=== PATIENT | male | born 1940 | race Caucasian/White ===

== ENCOUNTER 2016-07-02 09:39 | Outpatient (CLI) | payer MEDICARE, OTHER | END 2016-07-02 09:40 | disposition home or self-care (01) | DX: E78.5 Hyperlipidemia, unspecified (principal); R35.1 Nocturia; C61 Malignant neoplasm of prostate ==

== ENCOUNTER 2016-07-02 12:27 | Outpatient (CLI) | payer MEDICARE, OTHER | END 2016-07-02 12:28 | disposition home or self-care (01) | DX: R35.1 Nocturia (principal); C61 Malignant neoplasm of prostate ==

== ENCOUNTER 2016-11-26 18:07 | Emergency (ER) | payer MEDICARE, OTHER ==
[2016-11-26 18:48] LABS: BILIRUBIN,URINE NEGATIVE (NEGATIVE)
[2016-11-26 18:49] LABS: UA w/ MICROSCOPIC CHARGE YES
[2016-11-26 18:51] LABS: UR CULTURE IF IND NOT INDICATED; WBC,URINE 0-3 /HPF (0-3)
--- NOTE | 2016-11-26 19:27 | ED Physician Documentation ---
PD HPI MALE - Stated complaint Stated Complaint: MALE - Chief complaint Chief Complaint: General - History obtained from History obtained from: Patient - History of Present Illness Timing - onset: Today Timing - duration: Hours Timing - details: Abrupt onset, Still present (improving to just faint redness of urine now.) Associated symptoms: Hematuria (noted marked blood in urine today, without clots. It is tapering now.). No: Unable to urinate, Genital sore / lesion Similar symptoms before: Diagnosis (some blood in urine with bladder cancer and surgery in the past.) Recently seen: Not recently seen Review of Systems Constitutional: denies: Fever, Chills GI: denies: Abdominal Pain, Nausea, Vomiting : reports: Hesitancy, Hematuria (just today). denies: Dysuria, Frequency Skin: denies: Rash, Lesions PD PAST MEDICAL HISTORY - Past Medical History Cardiovascular: Hypertension, High cholesterol : Retention, Other - Past Surgical History Past Surgical History: Yes General: Other Cardiovascular: Pacemaker - Present Medications Home Medications: Ambulatory Orders Medication Instructions Recorded Confirmed Aspirin 81 mg PO DAILY 11/26/16 11/26/16 Atorvastatin [Lipitor] 20 mg PO DAILY 11/26/16 11/26/16 Carvedilol 12.5 mg PO DAILY 11/26/16 11/26/16 Losartan [Cozaar] 25 mg PO DAILY 11/26/16 11/26/16 Sulfamethox/Trimeth 800/160 1 each PO BID #10 tablet 11/26/16 [Bactrim Ds 800/160] Tamsulosin HCl [Flomax] 0.4 mg PO BID 11/26/16 11/26/16 Tolterodine Tartrate [Detrol] 2 mg PO DAILY 11/26/16 11/26/16 - Allergies Allergies/Adverse Reactions: Allergies Allergy/AdvReac Type Severity Reaction Status Date / Time No Known Drug Allergies Allergy Verified 11/26/16 18:56 - Social History Does the pt smoke?: No Smoking Status: Never smoker Does the pt drink ETOH?: Yes Does the pt have substance abuse?: No - POLST Patient has POLST: No PD ED PE NORMAL - Vitals Vital signs reviewed: Yes - General General: Alert and oriented X 3, No acute distress, Well developed/nourished - Abdomen Abdomen: Normal bowel sounds, Soft, Non tender - Male Male : Deferred - Rectal Rectal: Deferred - Back Back: No CVA TTP - Derm Derm: Normal color, Warm and dry Results - Vitals Vitals: Oxygen O2 Source Room air - Labs Labs: Laboratory Tests 11/26/16 18:41 Urine Color RED/BLOODY Urine Clarity BLOODY Urine pH 7.0 Ur Specific [place] 1.015 Urine Protein 30 H Urine Glucose (UA) NEGATIVE Urine Ketones NEGATIVE Urine Occult Blood LARGE H Urine Nitrite NEGATIVE Urine Bilirubin NEGATIVE Urine Urobilinogen 0.2 (NORMAL) Ur Leukocyte Esterase NEGATIVE Urine RBC TNTC H Urine WBC 0-3 Ur Squamous Epith Cells NONE SEEN Urine Bacteria Rare Ur Microscopic Review INDICATED Urine Culture Comments NOT INDICATED PD MEDICAL DECISION MAKING - ED course Complexity details: reviewed results, considered differential (only rare bacteria on UA with low WBC, but still infection will be common cause of hematuria. Will treat it that way. Has lessened hematuria now and no clots, so will see if improves, and have him follow up with his urologist. ), d/w patient Departure - Departure Disposition: Home, Self Care Clinical Impression: Hematuria Qualifiers: Hematuria type: gross Qualified Code(s): R31.0 - Gross hematuria Condition: Stable Record reviewed to determine appropriate education?: Yes Instructions: ED Hematuria Follow-Up: Wayne Verma MD [Primary Care Provider] - Indira Meade MD [Physician No Access] - Prescriptions: Sulfamethox/Trimeth 800/160 [Bactrim Ds 800/160] 1 each PO BID #10 tablet Comments: Your urine test does not show an obvious infection but that would be a very common cause of blood in the urine. We are treated with an antibiotic for the next 5 days. See how your urine does over the next day or 2 if the bleeding stops. If it does not stop bleeding, follow-up with your urologist on Tuesday. If it picks up the degree of bleeding significantly, then return to the ER. Discharge Date/Time: 11/26/16 19:54
[2016-11-26] MEDS ORDERED: SULFAMETH/TRIMETH DS 800/160 MG TABLET PO STA (19:42)
[2016-11-26] MEDS ORDERED: SULFAMETH/TRIMETH DS 800/160 MG TABLET PO ONE (19:50)
[2016-11-26 19:56] VITALS: BP 121/77
== END 2016-11-26 19:54 | disposition home or self-care (01) ==
LOC: ED 18:07
DX: R31.0 Gross hematuria (principal); I10 Essential (primary) hypertension; E78.00 Pure hypercholesterolemia, unspecified; Z95.0 Presence of cardiac pacemaker; Z79.82 Long term (current) use of aspirin
CPT/HCPCS: 81001; 99282; 99283; A9270; 81003; 87086

== ENCOUNTER 2017-10-06 19:59 | Emergency (ER) | payer MEDICARE, OTHER ==
[2017-10-06] MEDS ORDERED: ONDANSETRON 4 MG/2 ML VIAL IVP STA (20:29)
[2017-10-06] MEDS ORDERED: MORPHINE 10 MG/ML VIAL IVP STA (20:29)
[2017-10-06 20:30] LABS: BASOPHILS # (AUTO) 0.1 10^3/uL (0.0-0.1); BASOPHILS % (AUTO) 0.5 %; EOSINOPHILS # (AUTO) 0.1 10^3/uL (0.0-0.7); HGB - HEMOGLOBIN 16.9 g/dL (14.0-18.0); LYMPHOCYTES # (AUTO) 1.1 10^3/uL (1.5-3.5); LYMPHOCYTES % (AUTO) 9.3 %; MEAN CORPUSCULAR HEMOGLOBIN 31.4 pg (27.0-31.0); MEAN CORPUSCULAR HGB CONC 33.9 g/dL (32.0-36.0); MEAN CORPUSCULAR VOLUME 92.7 fL (80.0-94.0); MEAN PLATELET VOLUME 8.6 fL (7.4-11.4); MONOCYTES # (AUTO) 0.7 10^3/uL (0.0-1.0); MONOCYTES % (AUTO) 5.5 %; NEUTROPHILS # (AUTO) 10.1 10^3/uL (1.5-6.6); NEUTROPHILS % (AUTO) 83.7 %; PLT - PLATELET COUNT 198 10^3/uL (130-450); RED BLOOD COUNT 5.36 10^6/uL (4.70-6.10); RED CELL DISTRIBUTION WIDTH 13.7 % (12.0-15.0)
--- NOTE | 2017-10-06 20:31 | ED Physician Documentation ---
PD HPI ABD PAIN - Stated complaint Stated Complaint: AB PX - Chief complaint Chief Complaint: Abd Pain - History obtained from History obtained from: Patient - History of Present Illness Timing - onset: Today (A relatively sudden onset lower abdominal pain starting mid afternoon today with nausea and vomiting. He had a normal bowel movement prior to that but does not note any flatus since then. 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 denies: Constipation, Diarrhea : denies: Dysuria, Frequency PD PAST MEDICAL HISTORY - Past Medical History Cardiovascular: Hypertension, High cholesterol : Retention, Other - Past Surgical History Past Surgical History: Yes General: Other Cardiovascular: Pacemaker - Present Medications Home Medications: Ambulatory Orders Medication Instructions Recorded Confirmed Aspirin 81 mg PO DAILY 11/26/16 11/26/16 Atorvastatin [Lipitor] 20 mg PO DAILY 11/26/16 11/26/16 Carvedilol 12.5 mg PO DAILY 11/26/16 11/26/16 Losartan [Cozaar] 25 mg PO DAILY 11/26/16 11/26/16 Tamsulosin HCl [Flomax] 0.4 mg PO BID 11/26/16 11/26/16 Tolterodine Tartrate [Detrol] 2 mg PO DAILY 11/26/16 11/26/16 Meloxicam [Mobic] 7.5 mg PO BIDWM PRN #7 tablet 10/06/17 Oxycodone HCl/Acetaminophen 1 - 2 tab PO Q4H PRN #15 tablet 10/06/17 [Percocet 5-325 mg Tablet] - Allergies Allergies/Adverse Reactions: Allergies Allergy/AdvReac Type Severity Reaction Status Date / Time No Known Drug Allergies Allergy Verified 10/06/17 20:27 - Social History Does the pt smoke?: No Smoking Status: Never smoker Does the pt drink ETOH?: Yes Does the pt have substance abuse?: No - POLST Patient has POLST: No PD ED PE NORMAL - Vitals Vital signs reviewed: Yes - General General: Alert and oriented X 3, No acute distress - HEENT HEENT: PERRL, EOMI - Neck Neck: Supple, no meningeal sign, No bony TTP - Cardiac Cardiac: RRR, No murmur - Respiratory Respiratory: No respiratory distress, Clear bilaterally - Abdomen Abdomen: Other (I do not appreciate any bowel tones, he is nontender. No surgical signs.) - Back Back: No CVA TTP, No spinal TTP - Derm Derm: Normal color, Warm and dry - Extremities Extremities: No edema, No calf tenderness / cord - Neuro Neuro: Alert and oriented X 3, Normal speech - Psych Psych: Normal mood, Normal affect Results - Vitals Vitals: Vital Signs - 24 hr 10/06/17 10/06/17 10/06/17 20:00 20:45 20:55 Temperature 36.3 C L Heart Rate 57 L 57 L 56 L Respiratory 24 17 14 Rate Blood Pressure 144/80 H 143/84 H 143/84 H O2 Saturation 99 97 97 10/06/17 10/06/17 10/06/17 21:05 21:06 21:44 Temperature Heart Rate 74 Respiratory 74 H 98 H 18 Rate Blood Pressure 139/95 H O2 Saturation 100 10/06/17 22:35 Temperature 36.8 C Heart Rate 63 Respiratory 16 Rate Blood Pressure 114/78 O2 Saturation 96 Oxygen O2 Source Room air - Labs Labs: Laboratory Tests 10/06/17 10/06/17 10/06/17 20:17 20:19 20:19 WBC 12.0 H RBC 5.36 Hgb 16.9 Hct 49.7 MCV 92.7 MCH 31.4 H MCHC 33.9 RDW 13.7 Plt Count 198 MPV 8.6 Neut # (Auto) 10.1 H Lymph # (Auto) 1.1 L [place] # (Auto) 0.7 Eos # (Auto) 0.1 Baso # (Auto) 0.1 Absolute Nucleated RBC 0.01 Nucleated RBC % 0.1 Sodium 141 Potassium 4.2 Chloride 104 Carbon Dioxide 24 Anion Gap 13.0 BUN 21 H Creatinine 1.3 H Estimated GFR (MDRD) 53 L Glucose 125 H Lactic Acid Calcium 10.6 H Total Bilirubin 2.6 H AST 30 ALT 26 Alkaline Phosphatase 90 Total Protein 7.2 Albumin 4.4 Globulin 2.8 Albumin/Globulin Ratio 1.6 Lipase 17 L Urine Color YELLOW Urine Clarity CLOUDY Urine pH 7.0 Ur Specific [place] 1.015 Urine Protein NEGATIVE Urine Glucose (UA) NEGATIVE Urine Ketones 15 H Urine Occult Blood MODERATE H Urine Nitrite NEGATIVE Urine Bilirubin NEGATIVE Urine Urobilinogen 0.2 (NORMAL) Ur Leukocyte Esterase NEGATIVE Urine RBC 11-25 H Urine WBC 6-10 H Ur Squamous Epith Cells NONE SEEN Amorphous Sediment Moderate Urine Bacteria None Seen Ur Microscopic Review INDICATED Urine Culture Comments INDICATED 10/06/17 22:03 WBC RBC Hgb Hct MCV MCH MCHC RDW Plt Count MPV Neut # (Auto) Lymph # (Auto) Garden # (Auto) Eos # (Auto) Baso # (Auto) Absolute Nucleated RBC Nucleated RBC % Sodium Potassium Chloride Carbon Dioxide Anion Gap BUN Creatinine Estimated GFR (MDRD) Glucose Lactic Acid 1.6 Calcium Total Bilirubin AST ALT Alkaline Phosphatase Total Protein Albumin Globulin Albumin/Globulin Ratio Lipase Urine Color Urine Clarity Urine pH Ur Specific [place] Urine Protein Urine Glucose (UA) Urine Ketones Urine Occult Blood Urine Nitrite Urine Bilirubin Urine Urobilinogen Ur Leukocyte Esterase Urine RBC Urine WBC Ur Squamous Epith Cells Amorphous Sediment Urine Bacteria Ur Microscopic Review Urine Culture Comments - Rads (name of study) cT aBD aNGIO Radiology: EMP read contemporaneously (8 x 3 x 3 mildly obstructing left distal ureteral calculus. There is aortoiliac atherosclerotic calcification and ectasia of the distal infrarenal abdominal aorta and iliacs. Prior CABG. Evidence of decreased cardiac output. Prostatomegaly with seeds in place.) PD MEDICAL DECISION MAKING - ED course ED course: 77-year-old gentleman with acute lower abdominal pain, given his history of vascular issues initial concern was for just that, also decreased bowel tones were concerning for bowel obstruction, as such CT angiography was done but the finding that was relevant was an 8 x 3 x 3 mm distal left ureteral calculus. He was pain-free after medications here and follow up with his urologist was advised. - Sepsis Event Vital Signs: Vital Signs - 24 hr 10/06/17 10/06/17 10/06/17 20:00 20:45 20:55 Temperature 36.3 C L Heart Rate 57 L 57 L 56 L Respiratory 24 17 14 Rate Blood Pressure 144/80 H 143/84 H 143/84 H O2 Saturation 99 97 97 10/06/17 10/06/17 10/06/17 21:05 21:06 21:44 Temperature Heart Rate 74 Respiratory 74 H 98 H 18 Rate Blood Pressure 139/95 H O2 Saturation 100 10/06/17 22:35 Temperature 36.8 C Heart Rate 63 Respiratory 16 Rate Blood Pressure 114/78 O2 Saturation 96 Oxygen O2 Source Room air Departure - Departure Disposition: 01 Home, Self Care Clinical Impression: Abdominal pain, Renal colic Condition: Good Record reviewed to determine appropriate education?: Yes Instructions: ED Stone Renal W Colic Prescriptions: Meloxicam [Mobic] 7.5 mg PO BIDWM PRN #7 tablet PRN Reason: Pain Oxycodone HCl/Acetaminophen [Percocet 5-325 mg Tablet] 1 - 2 tab PO Q4H PRN #15 tablet PRN Reason: Pain Comments: Follow-up with the urologist, call tomorrow for an appointment. When you go to that appointment take the copy of the CAT scan with you. Return if worse or if pain is uncontrolled. Discharge Date/Time: 10/06/17 22:35
[2017-10-06 20:45] LABS: ALBUMIN 4.4 g/dL (3.2-5.5); ALBUMIN/GLOBULIN RATIO 1.6 (1.0-2.2); BILIRUBIN,TOTAL 2.6 mg/dL (0.2-1.0); CALCIUM 10.6 mg/dL (8.5-10.3); CREATININE 1.3 mg/dL (0.6-1.2); TOTAL PROTEIN 7.2 g/dL (6.7-8.2)
[2017-10-06] MEDS ORDERED: ACETAMINOPHEN 1,000 MG/100 ML 100 ML IV STA (21:08)
[2017-10-06] MEDS ORDERED: IOPAMIDOL-300 50 ML VIAL ONE (21:14)
[2017-10-06] MEDS ORDERED: IOPAMIDOL-300 100 ML VIAL ONE (21:15)
[2017-10-06] MEDS ORDERED: IOPAMIDOL-300 100 ML VIAL IVP ONE (21:35)
--- NOTE | 2017-10-06 22:10 | CT Report ---
Procedure Date: 10/06/2017 Accession Number: [id number] / [id number] Procedure: CT - Abdomen/Pelvis Angio CPT Code: FULL RESULT: EXAM: CT ANGIOGRAM ABDOMEN AND PELVIS WITH CONTRAST EXAM DATE: 10/06/2017 09:39 PM. CLINICAL HISTORY: Low abd pain. COMPARISONS: Pelvis radiograph 08/18/2015. TECHNIQUE: Routine helical CT angiogram imaging was performed through the abdomen and pelvis in the arterial phase. IV contrast: ISOVUE 300 100mL. Enteric contrast: No. Reconstructions: Coronal, sagittal, and 3D MIP reconstructions. In accordance with CT protocol optimization, one or more of the following dose reduction techniques were utilized for this exam: automated exposure control, adjustment of mA and/or KV based on patient size, or use of iterative reconstructive technique. FINDINGS: Vasculature: Mild cardiomegaly. Pacemaker and defibrillator electrodes are present. There is three-vessel coronary artery calcification. Prior CABG with SARAVIA. There is mild calcification in the abdominal aorta. There is minimal fusiform ectasia of the distal infrarenal abdominal aorta which measures up to 2.3 cm. There is mild calcification in the bilateral common iliac arteries. There is moderate bilateral iliac artery tortuosity. There is mild left and minimal right common femoral artery calcification. The celiac axis, SMA, MAXINE, and bilateral renal arteries are widely patent. There are 2 left renal arteries. There is mild contrast reflux into the IVC and hepatic veins. There are bilateral pelvic phleboliths. Lung Bases: There is minimal reticular bibasilar atelectasis or scarring. Abdominal Solid Organs: Early arterial phase images of liver, pancreas, spleen, adrenal glands, and right kidney are unremarkable. There is mild left perinephric fat stranding without delayed enhancement. There is mild left hydronephrosis and hydroureter. There is mild periureteral fat stranding. There are no definite intrarenal calculi. There is an 8 x 3 x 3 mm distal left ureteral calculus 1 cm proximal to the ureterovesical junction, visible on the stock handler floorperson. Biliary system: Unremarkable. Peritoneal Cavity: The opacified stomach and small bowel are nondistended. There is a mobile cecum. The appendix is not clearly identified. There is a small amount of formed stool in the colon. There is mild descending and moderate sigmoid colon diverticulosis. There is no pericolonic fat stranding. There is no lymphadenopathy, ascites, or pneumoperitoneum. Pelvic Organs: Moderate prostatomegaly 4 brachial therapy seeds. Seminal vesicles are unremarkable. Bladder normal in size. No bladder calculi. Bones: Partially lumbarized S1. Moderate degenerative disk disease L5-S1. Sternotomy wires are present. Other: Abdominal wall is unremarkable. IMPRESSION: 1. Mildly obstructing 8 x 3 x 3 mm distal left ureteral calculus. 2. Mild aortoiliac atherosclerotic calcification. Minimal 2.3 cm diameter fusiform ectasia of the distal infrarenal abdominal aorta. Moderate bilateral iliac artery tortuosity. 3. Prior CABG. Pacemaker and defibrillator electrodes. Mild cardiomegaly. Mild contrast reflux into the IVC and hepatic veins consistent with decreased cardiac output. 4. Moderate prostatomegaly. 4 brachytherapy seeds are noted. RADIA
[2017-10-06] MEDS ORDERED: oxyCODONE/ACET 5/325 Prepack 4 PO STA (22:21)
[2017-10-06 22:31] LABS: BILIRUBIN,URINE NEGATIVE (NEGATIVE); GLUCOSE, URINE (UA) NEGATIVE (NEGATIVE); KETONES,URINE (UA) 15 mg/dL (NEGATIVE); LEUKOCYTE ESTERASE, URINE NEGATIVE (NEGATIVE); NITRITE,URINE NEGATIVE (NEGATIVE); OCCULT BLOOD,URINE MODERATE (NEGATIVE); PROTEIN,URINE NEGATIVE (NEGATIVE); UROBILINOGEN,URINE 0.2 (NORMAL) E.U./dL (NORMAL)
[2017-10-06 22:33] LABS: CLARITY,URINE CLOUDY (CLEAR)
[2017-10-06 22:37] LABS: AMORPHOUS SEDIMENT,UR Moderate /LPF; BACTERIA,URINE None Seen /HPF (None Seen); SQUAMOUS EPITHELIAL CELL,UR NONE SEEN (<= Few)
[2017-10-06 22:46] VITALS: BP 114/78
== END 2017-10-06 22:35 | disposition home or self-care (01) ==
LOC: ED 19:59
DX: N20.1 Calculus of ureter (principal); R10.30 Lower abdominal pain, unspecified; I10 Essential (primary) hypertension; E78.00 Pure hypercholesterolemia, unspecified; Z95.0 Presence of cardiac pacemaker; I25.10 Atherosclerotic heart disease of native coronary artery without angina pectoris; Z95.1 Presence of aortocoronary bypass graft; Z79.82 Long term (current) use of aspirin
CPT/HCPCS: 36415; 74174; 80053; 81001; 83605; 83690; 85025; 87086; 96365; 96375; 99284; J0131; Q9967; 81003

== ENCOUNTER 2017-10-08 13:23 | Emergency (ER) | payer MEDICARE, OTHER ==
--- NOTE | 2017-10-08 14:16 | ED Physician Documentation ---
History of Present Illness - Stated complaint Stated Complaint: MED REFILL - Chief complaint Chief Complaint: General - History obtained from History obtained from: Patient - History of Present Illness Timing: Other (He was seen by me a few days ago for renal colic with an 8 x 3 x 3 stone on the left distal ureter. He continues to have pain and has an appointment with his urologist in 5 days, but is taking Percocet, 2 every 4 hours generally which controls the pain but he will run out shortly. He also is having some nausea needs something for that.) Review of Systems Constitutional: denies: Fever, Chills Respiratory: denies: Dyspnea GI: reports: Abdominal Pain, Nausea, Vomiting (Once yesterday) : denies: Dysuria PD PAST MEDICAL HISTORY - Past Medical History Past Medical History: Yes Cardiovascular: Hypertension, High cholesterol : Retention, Other Other Past Medical History: Kidney stones - Past Surgical History Past Surgical History: Yes General: Other Cardiovascular: Pacemaker - Present Medications Home Medications: Ambulatory Orders Medication Instructions Recorded Confirmed Aspirin 81 mg PO DAILY 11/26/16 11/26/16 Atorvastatin [Lipitor] 20 mg PO DAILY 11/26/16 11/26/16 Carvedilol 12.5 mg PO DAILY 11/26/16 11/26/16 Losartan [Cozaar] 25 mg PO DAILY 11/26/16 11/26/16 Tamsulosin HCl [Flomax] 0.4 mg PO BID 11/26/16 11/26/16 Tolterodine Tartrate [Detrol] 2 mg PO DAILY 11/26/16 11/26/16 Meloxicam [Mobic] 7.5 mg PO BIDWM PRN #7 tablet 10/06/17 Oxycodone HCl/Acetaminophen 1 - 2 tab PO Q4H PRN #15 tablet 10/06/17 [Percocet 5-325 mg Tablet] Ondansetron HCl [Zofran] 4 mg PO Q6H PRN #10 tablet 10/08/17 Oxycodone HCl/Acetaminophen 1 - 2 tab PO Q4H PRN #50 tablet 10/08/17 [Percocet 5-325 mg Tablet] - Allergies Allergies/Adverse Reactions: Allergies Allergy/AdvReac Type Severity Reaction Status Date / Time No Known Drug Allergies Allergy Verified 10/06/17 20:27 - Social History Does the pt smoke?: No Smoking Status: Never smoker Does the pt drink ETOH?: Yes Does the pt have substance abuse?: No - Immunizations Immunizations are current?: No Immunizations: TDAP >10years/unknown, Other immun current - POLST Patient has POLST: No PD ED PE NORMAL - Vitals Vital signs reviewed: Yes - General General: Alert and oriented X 3, No acute distress - Extremities Extremities: No edema, No calf tenderness / cord - Neuro Neuro: Alert and oriented X 3, Normal speech - Psych Psych: Normal mood, Normal affect Results - Vitals Vitals: Vital Signs - 24 hr 10/08/17 13:47 Temperature 36.9 C Heart Rate 71 Respiratory 16 Rate Blood Pressure 112/68 O2 Saturation 97 Oxygen O2 Source Room air PD MEDICAL DECISION MAKING - Sepsis Event Vital Signs: Vital Signs - 24 hr 10/08/17 13:47 Temperature 36.9 C Heart Rate 71 Respiratory 16 Rate Blood Pressure 112/68 O2 Saturation 97 Oxygen O2 Source Room air Departure - Departure Disposition: 01 Home, Self Care Clinical Impression: Renal colic Condition: Good Record reviewed to determine appropriate education?: Yes Instructions: ED Stone Renal W Colic Prescriptions: Ondansetron HCl [Zofran] 4 mg PO Q6H PRN #10 tablet PRN Reason: Nausea / Vomiting Oxycodone HCl/Acetaminophen [Percocet 5-325 mg Tablet] 1 - 2 tab PO Q4H PRN #50 tablet PRN Reason: Pain Comments: Follow-up with urologist as scheduled and return if worse. Do not drink or drive while taking narcotic pain medication. Note that many narcotic pain relievers also contain Tylenol/acetaminophen. Please ensure that your total dose of acetaminophen from all sources does not exceed 3 g (3000 mg) per day. You may get constipated while on this medication. Take a stool softener such as Colace twice a day while you are on it. Also add an [id number] laxative such as senna or MiraLAX on any day that you do not have a bowel movement. If you received a narcotic pain medication or sedative while in the emergency department, do not drive for the next 24 hours.
[2017-10-08 14:25] VITALS: BP 109/66
== END 2017-10-08 14:24 | disposition home or self-care (01) ==
LOC: ED 13:23
DX: N23 Unspecified renal colic (principal); I10 Essential (primary) hypertension; E78.00 Pure hypercholesterolemia, unspecified; Z87.442 Personal history of urinary calculi; Z95.0 Presence of cardiac pacemaker; Z79.82 Long term (current) use of aspirin
CPT/HCPCS: 99283; 99284

== ENCOUNTER 2017-10-30 23:07 | Emergency (ER) | payer MEDICARE, OTHER ==
[2017-10-30] MEDS ORDERED: KETOROLAC 60 MG/2 ML VIAL IVP STA (23:36)
[2017-10-30] MEDS ORDERED: SODIUM CHLORIDE 0.9% 1,000 ML IV ONE (23:36)
[2017-10-30 23:38] LABS: BASOPHILS % (AUTO) 0.4 %; EOSINOPHILS # (AUTO) 0.3 10^3/uL (0.0-0.7); EOSINOPHILS % (AUTO) 3.4 %; HGB - HEMOGLOBIN 14.8 g/dL (14.0-18.0); LYMPHOCYTES # (AUTO) 0.8 10^3/uL (1.5-3.5); LYMPHOCYTES % (AUTO) 10.9 %; MEAN CORPUSCULAR HEMOGLOBIN 32.1 pg (27.0-31.0); MEAN CORPUSCULAR HGB CONC 35.1 g/dL (32.0-36.0); MEAN CORPUSCULAR VOLUME 91.5 fL (80.0-94.0); MEAN PLATELET VOLUME 7.8 fL (7.4-11.4); MONOCYTES # (AUTO) 0.9 10^3/uL (0.0-1.0); MONOCYTES % (AUTO) 12.5 %; NEUTROPHILS # (AUTO) 5.5 10^3/uL (1.5-6.6); NEUTROPHILS % (AUTO) 72.8 %; PLT - PLATELET COUNT 155 10^3/uL (130-450); RED BLOOD COUNT 4.61 10^6/uL (4.70-6.10); RED CELL DISTRIBUTION WIDTH 13.6 % (12.0-15.0); WHITE BLOOD COUNT 7.6 x10^3/uL (4.8-10.8)
[2017-10-30 23:58] LABS: ALBUMIN 3.8 g/dL (3.2-5.5); ALBUMIN/GLOBULIN RATIO 1.4 (1.0-2.2); BILIRUBIN,TOTAL 1.1 mg/dL (0.2-1.0); CALCIUM 9.8 mg/dL (8.5-10.3); CREATININE 1.7 mg/dL (0.6-1.2); TOTAL PROTEIN 6.6 g/dL (6.7-8.2)
[2017-10-31] MEDS ORDERED: SODIUM CHLORIDE 0.9% 1,000 ML IV ONE (00:04)
[2017-10-31 00:19] LABS: BILIRUBIN,URINE NEGATIVE (NEGATIVE); GLUCOSE, URINE (UA) NEGATIVE (NEGATIVE); KETONES,URINE (UA) 15 mg/dL (NEGATIVE); LEUKOCYTE ESTERASE, URINE NEGATIVE (NEGATIVE); NITRITE,URINE NEGATIVE (NEGATIVE); OCCULT BLOOD,URINE MODERATE (NEGATIVE); PROTEIN,URINE TRACE mg/dL (NEGATIVE); UROBILINOGEN,URINE 0.2 (NORMAL) E.U./dL (NORMAL)
[2017-10-31 00:28] LABS: CLARITY,URINE SL. CLOUDY (CLEAR)
[2017-10-31 00:45] LABS: BACTERIA,URINE None Seen /HPF (None Seen); CRYSTALS,URINE 11-25 Ca Oxalate /LPF; SQUAMOUS EPITHELIAL CELL,UR RARE Squamous (<= Few)
--- NOTE | 2017-10-31 01:30 | CT Report ---
Procedure Date: 10/31/2017 Accession Number: [id number] / [id number] Procedure: CT - Abdomen/Pelvis W/O CPT Code: FULL RESULT: EXAM: CT ABDOMEN AND PELVIS (CT KUB) EXAM DATE: 10/31/2017 01:10 AM. CLINICAL HISTORY: Left lower quadrant pain. COMPARISONS: ABDOMEN/PELVIS ANGIO 10/06/2017. TECHNIQUE: Routine axial helical CT imaging was performed through the abdomen and pelvis without IV contrast. Reconstructions: Coronal and sagittal. In accordance with CT protocol optimization, one or more of the following dose reduction techniques were utilized for this exam: automated exposure control, adjustment of mA and/or KV based on patient size, or use of iterative reconstructive technique. FINDINGS: Lung Bases: Unremarkable. Right Kidney/Ureter: No stones, hydronephrosis, or hydroureter. Left Kidney/Ureter: Mildly obstructing couple of 2 x 2 mm left UVJ stones. Otherwise grossly unremarkable. Other Abdominal Organs: Noncontrast images of the abdominal organs are grossly unremarkable. Peritoneal Cavity: No free fluid, free air or johnnie adenopathy. No excessive stool burden. Colonic diverticulosis. Pelvic Organs: Moderately to severely enlarged prostate with therapy seeds noted. The bladder appears within normal limits with exception of the left UVJ stones. Vasculature: Moderate atherosclerotic disease of the aorta and branches. No aneurysm seen. Other: None. IMPRESSION: 1. Mildly obstructing couple of 2 x 2 mm left UVJ stones. 2. Colonic diverticulosis. 3. Moderately to severely enlarged prostate. 4. Moderate atherosclerotic disease of the aorta and branches. RADIA
[2017-10-31 01:35] VITALS: BP 122/92
--- NOTE | 2017-10-31 01:48 | ED Physician Documentation ---
PD HPI ABD PAIN - Stated complaint Stated Complaint: LLQ ABDOMINAL PAIN - Chief complaint Chief Complaint: Abd Pain - History obtained from History obtained from: Patient, Family - History of Present Illness Timing - onset: Yesterday Timing - details: Intermittant, Waxing and waning Quality: Cramping, Aching Location: LLQ Worsened by: Position, Palpation Associated symptoms: No: Fever, Nausea, Vomiting, Diarrhea Similar symptoms before: Work up / diagnostics Recently seen: Not recently seen - Additional information Additional information: Patient is a a 77 year old male who is presenting to the emergency department for left lower quadrant pain. Patient and were [place] [facility] [place] [facility] but returned today due to worsening pain and constipation. patient states that he tried taking three enemas with little relief. Patient is on low dose hydrocondone for a left sided renal stone. Patient reports that he has urological follow up in a couple of weeks. Review of Systems Ten Systems: 10 systems reviewed and negative Constitutional: denies: Fever, Chills Cardiac: denies: Chest pain / pressure, Palpitations, Calf pain Respiratory: denies: Dyspnea, Cough GI: reports: Abdominal Pain, Constipation. denies: Nausea, Vomiting, Diarrhea : reports: Hesitancy. denies: Dysuria, Frequency Skin: denies: Rash, Lesions Neurologic: denies: Generalized weakness, Focal weakness Immunocompromised: denies: Immunocompromised PD PAST MEDICAL HISTORY - Past Medical History Past Medical History: Yes Cardiovascular: Hypertension, High cholesterol : Retention, Other - Past Surgical History Past Surgical History: Yes General: Other Cardiovascular: Pacemaker - Present Medications Home Medications: Ambulatory Orders Medication Instructions Recorded Confirmed Aspirin 81 mg PO DAILY 11/26/16 11/26/16 Atorvastatin [Lipitor] 20 mg PO DAILY 11/26/16 11/26/16 Carvedilol 12.5 mg PO DAILY 11/26/16 11/26/16 Losartan [Cozaar] 25 mg PO DAILY 11/26/16 11/26/16 Tamsulosin HCl [Flomax] 0.4 mg PO BID 11/26/16 11/26/16 Tolterodine Tartrate [Detrol] 2 mg PO DAILY 11/26/16 11/26/16 Meloxicam [Mobic] 7.5 mg PO BIDWM PRN #7 tablet 10/06/17 Ondansetron HCl [Zofran] 4 mg PO Q6H PRN #10 tablet 10/08/17 Oxycodone HCl/Acetaminophen 1 - 2 tab PO Q4H PRN #50 tablet 10/08/17 [Percocet 5-325 mg Tablet] - Allergies Allergies/Adverse Reactions: Allergies Allergy/AdvReac Type Severity Reaction Status Date / Time No Known Drug Allergies Allergy Verified 10/30/17 23:15 - Social History Does the pt smoke?: No Smoking Status: Never smoker Does the pt drink ETOH?: Yes Does the pt have substance abuse?: No - Immunizations Immunizations are current?: No Immunizations: TDAP >10years/unknown, Other immun current - POLST Patient has POLST: No PD ED PE NORMAL - Vitals Vital signs reviewed: Yes - General General: Alert and oriented X 3, Well developed/nourished - HEENT HEENT: Atraumatic - Cardiac Cardiac: RRR, No murmur - Respiratory Respiratory: No respiratory distress, Clear bilaterally - Abdomen Abdomen: Soft - Derm Derm: Normal color, Warm and dry - Extremities Extremities: No deformity - Neuro Neuro: Alert and oriented X 3, No motor deficit, Normal speech - Psych Psych: Normal mood PD ED PE EXPANDED - HEENT HEENT: Dry mucous membranes - Abdomen Abdomen: Tender to palpation, LLQ. No: Rebound, Guarding Results - Vitals Vitals: Vital Signs - 24 hr 10/30/17 10/31/17 10/31/17 23:10 00:42 01:34 Temperature 36.5 C Heart Rate 65 67 62 Respiratory 16 16 16 Rate Blood Pressure 128/81 H 133/80 H 122/92 H O2 Saturation 95 94 95 Oxygen O2 Source Room air - Labs Labs: Laboratory Tests 10/30/17 10/30/17 10/30/17 23:26 23:26 23:57 WBC 7.6 RBC 4.61 L Hgb 14.8 Hct 42.2 MCV 91.5 MCH 32.1 H MCHC 35.1 RDW 13.6 Plt Count 155 MPV 7.8 Neut # (Auto) 5.5 Lymph # (Auto) 0.8 L Wetzel # (Auto) 0.9 Eos # (Auto) 0.3 Baso # (Auto) 0.0 Absolute Nucleated RBC 0.01 Nucleated RBC % 0.1 Sodium 134 L Potassium 3.9 Chloride 101 Carbon Dioxide 23 Anion Gap 10.0 BUN 24 H Creatinine 1.7 H Estimated GFR (MDRD) 39 L Glucose 117 H Calcium 9.8 Total Bilirubin 1.1 H AST 23 ALT 23 Alkaline Phosphatase 81 Total Protein 6.6 L Albumin 3.8 Globulin 2.8 Albumin/Globulin Ratio 1.4 Lipase 18 L Urine Color YELLOW Urine Clarity SL. CLOUDY Urine pH 6.0 Ur Specific [place] >=1.030 H Urine Protein TRACE Urine Glucose (UA) NEGATIVE Urine Ketones 15 H Urine Occult Blood MODERATE H Urine Nitrite NEGATIVE Urine Bilirubin NEGATIVE Urine Urobilinogen 0.2 (NORMAL) Ur Leukocyte Esterase NEGATIVE Urine RBC 6-10 H Urine WBC 4-5 Ur Squamous Epith Cells RARE Squamous Urine Crystals 11-25 Ca Oxalate Urine Bacteria None Seen Ur Microscopic Review INDICATED Urine Culture Comments NOT INDICATED - Rads (name of study) ct abd pelvis Radiology: Final report received (2, 2mm stones at left uvj) PD MEDICAL DECISION MAKING - ED course Complexity details: reviewed old records, reviewed results, re-evaluated patient , considered differential, d/w patient, d/w family ED course: Patient was seen and examined at bedside. IV access was gained and labs were drawn. urine was collected. Patient was found janiya and was treated with a two liter bolus. imaging was ordered. When patient returned the results were reviewed. patient had two small stones and minimal hydro. there was otherwise no sign of infection. Patient required no further work up at this time and was stable for discharge with outpatient follow up. - Sepsis Event Vital Signs: Vital Signs - 24 hr 10/30/17 10/31/17 10/31/17 23:10 00:42 01:34 Temperature 36.5 C Heart Rate 65 67 62 Respiratory 16 16 16 Rate Blood Pressure 128/81 H 133/80 H 122/92 H O2 Saturation 95 94 95 Oxygen O2 Source Room air Departure - Departure Disposition: Home, Self Care Clinical Impression: Renal colic Condition: Good Instructions: ED Stone Renal W Colic Follow-Up: Wayne Verma MD [Primary Care Provider] - Within 1 week Comments: Your symptoms today are being caused by a kidney stone and renal colic. You also had signs of dehydration. It is important that you stay well hydrated. You can take motrin or tylenol as needed for pain. You should follow up with your urologist at your pre-determined appointment. You may return to the emergency department at any time for new, worsening or uncontrollable symptoms. Discharge Date/Time: 10/31/17 02:01
== END 2017-10-31 02:01 | disposition home or self-care (01) ==
LOC: ED 23:07
DX: N20.1 Calculus of ureter (principal); N20.0 Calculus of kidney; N28.9 Disorder of kidney and ureter, unspecified; E86.0 Dehydration; I10 Essential (primary) hypertension; E78.00 Pure hypercholesterolemia, unspecified; Z95.0 Presence of cardiac pacemaker; Z79.82 Long term (current) use of aspirin
CPT/HCPCS: 36415; 74176; 80053; 81001; 81003; 83690; 85025; 87086; 96361; 96374; 99283; 99284

== ENCOUNTER 2018-11-08 08:00 | Outpatient (CLI) | payer MEDICARE, OTHER | END 2018-11-08 23:59 | disposition home or self-care (01) | LOC: LAB.WCP 08:00 | PROVIDERS: ATTEND Urology | DX: C61 Malignant neoplasm of prostate (principal) | CPT/HCPCS: 36415; 84153 ==

== ENCOUNTER 2019-09-18 10:32 | Outpatient (CLI) | payer MEDICARE, OTHER ==
[2019-09-18 12:29] LABS: BASOPHILS % (AUTO) 0.5 %; EOSINOPHILS # (AUTO) 0.2 10^3/uL (0.0-0.7); EOSINOPHILS % (AUTO) 3.3 %; HGB - HEMOGLOBIN 16.2 g/dL (14.0-18.0); LYMPHOCYTES # (AUTO) 1.1 10^3/uL (1.5-3.5); LYMPHOCYTES % (AUTO) 18.7 %; MEAN CORPUSCULAR HEMOGLOBIN 32.4 pg (27.0-31.0); MEAN CORPUSCULAR HGB CONC 34.2 g/dL (32.0-36.0); MEAN CORPUSCULAR VOLUME 94.6 fL (80.0-94.0); MEAN PLATELET VOLUME 10.2 fL (7.4-11.4); MONOCYTES # (AUTO) 0.6 10^3/uL (0.0-1.0); MONOCYTES % (AUTO) 9.8 %; NEUTROPHILS # (AUTO) 3.9 10^3/uL (1.5-6.6); NEUTROPHILS % (AUTO) 67.2 %; PLT - PLATELET COUNT 196 10^3/uL (130-450); RED CELL DISTRIBUTION WIDTH 12.5 % (12.0-15.0); WHITE BLOOD COUNT 5.8 x10^3/uL (4.8-10.8)
[2019-09-18 13:18] LABS: ALBUMIN 4.2 g/dL (3.2-5.5); ALKALINE PHOSPHATASE 72 IU/L (42-121); ALT ALANINE AMINOTRANSFERASE 31 IU/L (10-60); AST ASPARTATE AMINOTRANSFERASE 25 IU/L (10-42); BILIRUBIN,TOTAL 0.9 mg/dL (0.2-1.0); BUN - BLOOD UREA NITROGEN 16 mg/dL (6-20); CALCIUM 9.8 mg/dL (8.5-10.3); CARBON DIOXIDE - CO2 29 mmol/L (21-32); CHLORIDE 105 mmol/L (101-111); CHOL/HDL RATIO 4.3 (<5.0); CHOLESTEROL 130 mg/dL; GLUCOSE 117 mg/dL (70-100); HDL CHOLESTEROL 30 mg/dL; LDL CHOLESTEROL,CALCULATED 72 mg/dL; LDL/HDL RATIO 2.4 (<3.6); SODIUM 139 mmol/L (135-145); TOTAL PROTEIN 6.3 g/dL (6.7-8.2); VLDL CHOLESTEROL 28 mg/dL
== END 2019-09-18 23:59 | disposition home or self-care (01) ==
LOC: LAB.WCP 10:32
PROVIDERS: ATTEND Family Medicine
DX: E87.1 Hypo-osmolality and hyponatremia (principal); E78.5 Hyperlipidemia, unspecified; I25.10 Atherosclerotic heart disease of native coronary artery without angina pectoris
CPT/HCPCS: 36415; 80053; 80061; 83721; 84443; 85025

== ENCOUNTER 2020-08-01 08:00 | Outpatient (CLI) | payer MEDICARE, OTHER ==
[2020-08-01 11:56] LABS: BASOPHILS % (AUTO) 0.6 %; EOSINOPHILS # (AUTO) 0.3 10^3/uL (0.0-0.7); EOSINOPHILS % (AUTO) 5.4 %; HCT - HEMATOCRIT 48.6 % (42.0-52.0); HGB - HEMOGLOBIN 16.4 g/dL (14.0-18.0); LYMPHOCYTES # (AUTO) 1.1 10^3/uL (1.5-3.5); LYMPHOCYTES % (AUTO) 20.6 %; MEAN CORPUSCULAR HGB CONC 33.7 g/dL (32.0-36.0); MEAN CORPUSCULAR VOLUME 94.7 fL (80.0-94.0); MEAN PLATELET VOLUME 10.4 fL (7.4-11.4); MONOCYTES # (AUTO) 0.5 10^3/uL (0.0-1.0); MONOCYTES % (AUTO) 8.9 %; NEUTROPHILS # (AUTO) 3.5 10^3/uL (1.5-6.6); NEUTROPHILS % (AUTO) 64.3 %; PLT - PLATELET COUNT 201 10^3/uL (130-450); RED BLOOD COUNT 5.13 10^6/uL (4.70-6.10); RED CELL DISTRIBUTION WIDTH 12.7 % (12.0-15.0); WHITE BLOOD COUNT 5.4 x10^3/uL (4.8-10.8)
[2020-08-01 13:05] LABS: ALBUMIN 4.1 g/dL (3.2-5.5); ALBUMIN/GLOBULIN RATIO 1.7 (1.0-2.2); ALKALINE PHOSPHATASE 83 IU/L (42-121); ALT ALANINE AMINOTRANSFERASE 25 IU/L (10-60); AST ASPARTATE AMINOTRANSFERASE 21 IU/L (10-42); BILIRUBIN,TOTAL 1.3 mg/dL (0.2-1.0); BUN - BLOOD UREA NITROGEN 15 mg/dL (6-20); CALCIUM 9.9 mg/dL (8.5-10.3); CARBON DIOXIDE - CO2 30 mmol/L (21-32); CHLORIDE 104 mmol/L (101-111); CHOL/HDL RATIO 4.5 (<5.0); CHOLESTEROL 138 mg/dL; GFR - MDRD 72 (>89); GLUCOSE 113 mg/dL (70-100); HDL CHOLESTEROL 31 mg/dL; LDL CHOLESTEROL,CALCULATED 77 mg/dL; LDL/HDL RATIO 2.5 (<3.6); POTASSIUM 4.4 mmol/L (3.5-5.0); SODIUM 139 mmol/L (135-145); TOTAL PROTEIN 6.5 g/dL (6.7-8.2); TRIGLYCERIDES 152 mg/dL; VLDL CHOLESTEROL 30 mg/dL
[2020-08-01 13:12] LABS: THYROID STIMULATING HORMONE 1.8 uIU/mL (0.34-5.60)
== END 2020-08-01 23:59 | disposition home or self-care (01) ==
LOC: LAB.WCP 08:00
PROVIDERS: ATTEND Internal Medicine
DX: E87.1 Hypo-osmolality and hyponatremia (principal); E78.5 Hyperlipidemia, unspecified; C61 Malignant neoplasm of prostate; R06.09 Other forms of dyspnea; I25.10 Atherosclerotic heart disease of native coronary artery without angina pectoris; I25.5 Ischemic cardiomyopathy; Z87.19 Personal history of other diseases of the digestive system; I25.2 Old myocardial infarction
CPT/HCPCS: 36415; 80053; 80061; 83721; 84153; 84443; 85025

== ENCOUNTER 2021-02-03 10:30 | Outpatient (CLI) | payer MEDICARE, OTHER ==
[2021-02-03 21:33] LABS: CHOL/HDL RATIO 4.4 (<5.0); CHOLESTEROL 144 mg/dL; HDL CHOLESTEROL 33 mg/dL; LDL CHOLESTEROL,CALCULATED 87 mg/dL; LDL/HDL RATIO 2.6 (<3.6); TRIGLYCERIDES 119 mg/dL; VLDL CHOLESTEROL 24 mg/dL
== END 2021-02-03 23:59 | disposition home or self-care (01) ==
LOC: LAB.WCP 10:30
PROVIDERS: ATTEND Internal Medicine
DX: I50.22 Chronic systolic (congestive) heart failure (principal); I25.5 Ischemic cardiomyopathy
CPT/HCPCS: 36415; 80061; 83721

== ENCOUNTER 2021-04-07 08:00 | Outpatient (CLI) | payer MEDICARE, OTHER ==
[2021-04-07 12:26] LABS: BASOPHILS % (AUTO) 0.7 %; EOSINOPHILS # (AUTO) 0.3 10^3/uL (0.0-0.7); EOSINOPHILS % (AUTO) 4.5 %; HCT - HEMATOCRIT 48.7 % (42.0-52.0); HGB - HEMOGLOBIN 16.4 g/dL (14.0-18.0); LYMPHOCYTES # (AUTO) 1.1 10^3/uL (1.5-3.5); MEAN CORPUSCULAR HEMOGLOBIN 31.5 pg (27.0-31.0); MEAN CORPUSCULAR HGB CONC 33.7 g/dL (32.0-36.0); MEAN CORPUSCULAR VOLUME 93.7 fL (80.0-94.0); MEAN PLATELET VOLUME 10.5 fL (7.4-11.4); MONOCYTES # (AUTO) 0.6 10^3/uL (0.0-1.0); MONOCYTES % (AUTO) 10.4 %; NEUTROPHILS # (AUTO) 3.9 10^3/uL (1.5-6.6); NEUTROPHILS % (AUTO) 66.1 %; PLT - PLATELET COUNT 206 10^3/uL (130-450); RED CELL DISTRIBUTION WIDTH 12.4 % (12.0-15.0); WHITE BLOOD COUNT 5.9 x10^3/uL (4.8-10.8)
[2021-04-07 12:58] LABS: ALBUMIN 3.8 g/dL (3.2-5.5); ALBUMIN/GLOBULIN RATIO 1.7 (1.0-2.2); BILIRUBIN,TOTAL 1.2 mg/dL (0.2-1.0); CALCIUM 9.9 mg/dL (8.5-10.3)
[2021-04-07 13:03] LABS: THYROID STIMULATING HORMONE 2.02 uIU/mL (0.34-5.60)
== END 2021-04-07 23:59 | disposition home or self-care (01) ==
LOC: LAB.WCP 08:00
PROVIDERS: ATTEND Internal Medicine
DX: C61 Malignant neoplasm of prostate (principal); I25.5 Ischemic cardiomyopathy
CPT/HCPCS: 36415; 80053; 84153; 84443; 85025

== ENCOUNTER 2021-09-03 09:54 | Outpatient (CLI) | payer MEDICARE, OTHER ==
[2021-09-03 11:37] LABS: BASOPHILS % (AUTO) 0.6 %; EOSINOPHILS # (AUTO) 0.3 10^3/uL (0.0-0.7); HCT - HEMATOCRIT 49.8 % (42.0-52.0); HGB - HEMOGLOBIN 16.9 g/dL (14.0-18.0); LYMPHOCYTES # (AUTO) 1.1 10^3/uL (1.5-3.5); LYMPHOCYTES % (AUTO) 17.4 %; MEAN CORPUSCULAR HEMOGLOBIN 31.8 pg (27.0-31.0); MEAN CORPUSCULAR HGB CONC 33.9 g/dL (32.0-36.0); MEAN CORPUSCULAR VOLUME 93.6 fL (80.0-94.0); MEAN PLATELET VOLUME 10.4 fL (7.4-11.4); MONOCYTES # (AUTO) 0.7 10^3/uL (0.0-1.0); MONOCYTES % (AUTO) 10.9 %; NEUTROPHILS # (AUTO) 4.3 10^3/uL (1.5-6.6); NEUTROPHILS % (AUTO) 66.8 %; PLT - PLATELET COUNT 225 10^3/uL (130-450); RED BLOOD COUNT 5.32 10^6/uL (4.70-6.10); RED CELL DISTRIBUTION WIDTH 12.7 % (12.0-15.0); WHITE BLOOD COUNT 6.5 x10^3/uL (4.8-10.8)
[2021-09-03 11:57] LABS: ALBUMIN/GLOBULIN RATIO 1.6 (1.0-2.2); BILIRUBIN,TOTAL 1.2 mg/dL (0.2-1.0); CALCIUM 10.1 mg/dL (8.5-10.3); POTASSIUM 4.4 mmol/L (3.5-5.0); TOTAL PROTEIN 6.5 g/dL (6.7-8.2)
== END 2021-09-03 09:55 | disposition home or self-care (01) ==
LOC: LAB.N 09:54
PROVIDERS: ATTEND Internal Medicine
DX: I25.5 Ischemic cardiomyopathy (principal)
CPT/HCPCS: 36415; 80053; 85025

== ENCOUNTER 2022-02-24 14:17 | Outpatient (CLI) | payer MEDICARE, OTHER | END 2022-02-24 14:18 | disposition home or self-care (01) | LOC: LAB.N 14:17 | PROVIDERS: ATTEND Urology | DX: Z85.46 Personal history of malignant neoplasm of prostate (principal) | CPT/HCPCS: 36415; 84153 ==

== ENCOUNTER 2022-09-03 09:47 | Outpatient (CLI) | payer MEDICARE, OTHER ==
[2022-09-03 11:51] LABS: BASOPHILS % (AUTO) 0.5 %; EOSINOPHILS # (AUTO) 0.2 10^3/uL (0.0-0.7); EOSINOPHILS % (AUTO) 3.3 %; HCT - HEMATOCRIT 50.7 % (42.0-52.0); HGB - HEMOGLOBIN 17.1 g/dL (14.0-18.0); LYMPHOCYTES % (AUTO) 16.6 %; MEAN CORPUSCULAR HEMOGLOBIN 31.4 pg (27.0-31.0); MEAN CORPUSCULAR HGB CONC 33.7 g/dL (32.0-36.0); MEAN PLATELET VOLUME 10.4 fL (7.4-11.4); MONOCYTES # (AUTO) 0.6 10^3/uL (0.0-1.0); MONOCYTES % (AUTO) 9.9 %; NEUTROPHILS # (AUTO) 4.2 10^3/uL (1.5-6.6); NEUTROPHILS % (AUTO) 69.4 %; PLT - PLATELET COUNT 239 10^3/uL (130-450); RED BLOOD COUNT 5.45 10^6/uL (4.70-6.10)
[2022-09-03 11:58] LABS: ESTIMATED AVERAGE GLUCOSE 114 mg/dL (70-100); HEMOGLOBIN A1c% 5.6 % (4.27-6.07)
[2022-09-03 12:06] LABS: ALBUMIN/GLOBULIN RATIO 1.5 (1.0-2.2); ALKALINE PHOSPHATASE 73 IU/L (42-121); ALT ALANINE AMINOTRANSFERASE 21 IU/L (10-60); AST ASPARTATE AMINOTRANSFERASE 19 IU/L (10-42); BILIRUBIN,TOTAL 1.3 mg/dL (0.2-1.0); BUN - BLOOD UREA NITROGEN 17 mg/dL (6-20); CALCIUM 9.9 mg/dL (8.5-10.3); CARBON DIOXIDE - CO2 27 mmol/L (21-32); CHLORIDE 108 mmol/L (101-111); CHOL/HDL RATIO 4.3 (<5.0); CHOLESTEROL 145 mg/dL; CREATININE 0.9 mg/dL (0.6-1.2); GFR - MDRD 80 (>89); GLUCOSE 111 mg/dL (70-100); HDL CHOLESTEROL 34 mg/dL; LDL CHOLESTEROL,CALCULATED 85 mg/dL; LDL/HDL RATIO 2.5 (<3.6); POTASSIUM 4.2 mmol/L (3.5-5.0); SODIUM 139 mmol/L (135-145); TOTAL PROTEIN 6.6 g/dL (6.7-8.2); TRIGLYCERIDES 131 mg/dL; VLDL CHOLESTEROL 26 mg/dL
[2022-09-03 12:18] LABS: THYROID STIMULATING HORMONE 1.9 uIU/mL (0.34-5.60)
== END 2022-09-03 09:48 | disposition home or self-care (01) ==
LOC: LAB.N 09:47
PROVIDERS: ATTEND Internal Medicine
DX: I25.5 Ischemic cardiomyopathy (principal); R73.01 Impaired fasting glucose; I48.0 Paroxysmal atrial fibrillation; I25.10 Atherosclerotic heart disease of native coronary artery without angina pectoris
CPT/HCPCS: 36415; 80053; 80061; 83036; 83721; 84443; 85025

== ENCOUNTER 2023-02-11 09:47 | Outpatient (CLI) | payer MEDICARE, OTHER ==
[2023-02-11 12:27] LABS: BASOPHILS % (AUTO) 0.7 %; EOSINOPHILS # (AUTO) 0.2 10^3/uL (0.0-0.7); EOSINOPHILS % (AUTO) 3.1 %; HCT - HEMATOCRIT 50.3 % (42.0-52.0); HGB - HEMOGLOBIN 16.7 g/dL (14.0-18.0); LYMPHOCYTES % (AUTO) 16.8 %; MEAN CORPUSCULAR HEMOGLOBIN 31.9 pg (27.0-31.0); MEAN CORPUSCULAR HGB CONC 33.2 g/dL (32.0-36.0); MEAN PLATELET VOLUME 10.2 fL (7.4-11.4); MONOCYTES # (AUTO) 0.6 10^3/uL (0.0-1.0); MONOCYTES % (AUTO) 9.6 %; NEUTROPHILS # (AUTO) 4.3 10^3/uL (1.5-6.6); NEUTROPHILS % (AUTO) 69.3 %; PLT - PLATELET COUNT 224 10^3/uL (130-450); RED BLOOD COUNT 5.24 10^6/uL (4.70-6.10); RED CELL DISTRIBUTION WIDTH 12.6 % (12.0-15.0); WHITE BLOOD COUNT 6.1 x10^3/uL (4.8-10.8)
[2023-02-11 12:59] LABS: ALBUMIN 4.2 g/dL (3.2-5.5); ALBUMIN/GLOBULIN RATIO 2.2 (1.0-2.2); ALKALINE PHOSPHATASE 87 IU/L (42-121); ALT ALANINE AMINOTRANSFERASE 15 IU/L (10-60); AST ASPARTATE AMINOTRANSFERASE 15 IU/L (10-42); BILIRUBIN,TOTAL 1.1 mg/dL (0.2-1.0); BUN - BLOOD UREA NITROGEN 19 mg/dL (6-20); CALCIUM 10.2 mg/dL (8.5-10.3); CARBON DIOXIDE - CO2 27 mmol/L (21-32); CHLORIDE 106 mmol/L (101-111); CHOL/HDL RATIO 4.2 (<5.0); CHOLESTEROL 144 mg/dL; GFR - MDRD 71 (>89); GLUCOSE 110 mg/dL (74-104); HDL CHOLESTEROL 34 mg/dL; LDL CHOLESTEROL,CALCULATED 85 mg/dL; LDL/HDL RATIO 2.5 (<3.6); POTASSIUM 4.2 mmol/L (3.5-4.5); SODIUM 138 mmol/L (135-145); TOTAL PROTEIN 6.1 g/dL (6.4-8.9); TRIGLYCERIDES 124 mg/dL (48-352); VLDL CHOLESTEROL 25 mg/dL
[2023-02-11 13:04] LABS: THYROID STIMULATING HORMONE 1.82 uIU/mL (0.34-5.60)
[2023-02-11 13:14] LABS: ESTIMATED AVERAGE GLUCOSE 114 mg/dL (70-100); HEMOGLOBIN A1c% 5.6 % (4.27-6.07)
== END 2023-02-11 09:48 | disposition home or self-care (01) ==
LOC: LAB.N 09:47
PROVIDERS: ATTEND Internal Medicine
DX: C61 Malignant neoplasm of prostate (principal); I25.5 Ischemic cardiomyopathy; I25.10 Atherosclerotic heart disease of native coronary artery without angina pectoris; R73.01 Impaired fasting glucose; I48.0 Paroxysmal atrial fibrillation
CPT/HCPCS: 36415; 80053; 80061; 83036; 83721; 84153; 84443; 85025

== ENCOUNTER 2023-05-25 14:48 | Outpatient (CLI) | payer MEDICARE, OTHER ==
[2023-05-25 15:24] LABS: CREATININE 0.9 mg/dL (0.6-1.3)
--- NOTE | 2023-05-25 16:34 | CT Report ---
PROCEDURE: Orbits W INDICATIONS: OCULAR HYPERTENSION, DIPLOPIA CONTRAST: Intravenous contrast was given TECHNIQUE: After the administration of intravenous contrast, 2.0 mm axial images acquired through the orbits, wi th coronal reformatting. For radiation dose reduction, the following was used: automated exposure c ontrol, adjustment of mA and/or kV according to patient size. COMPARISON: None FINDINGS: Image quality: Excellent. Orbits: Globes are symmetrical. Bilateral lens replacements. The optic nerves are normal in size and enhancement. No retrobulbar masses or fat abnormalities. The extra-ocular muscles are normal and s ymmetrical in appearance. Lacrimal glands are normal. Optic chiasm is normal. Periorbital soft tis sues are normal. Intracranial: The pituitary gland is normal, without sellar or suprasellar masses. Visualized cereb ral hemispheres, brainstem, and spinal cord appear normal. Atherosclerotic vascular calcifications. Age-related volume loss. Bones and sinuses: Visualized calvarium and facial bones appear intact. Mild paranasal sinus mucosal thickening. IMPRESSION: The orbits are normal in appearance. No abnormal enhancement. No acute findings. Reviewed by: Quentin Santoro MD on 05/25/2023 4:33 PM PDT Approved by: Quentin Santoro MD on 05/25/2023 4:33 PM PDT Station ID: [id number]
[2023-05-25] MEDS: iohexoL-300 100 ML VIAL IVP ONE (18:04)
== END 2023-05-25 14:49 | disposition home or self-care (01) ==
LOC: LAB 14:48
PROVIDERS: ATTEND Ophthalmology
DX: H53.2 Diplopia (principal); H40.051 Ocular hypertension, right eye
CPT/HCPCS: 36415; 82565

== ENCOUNTER 2023-09-14 12:00 | Outpatient (CLI) | payer MEDICARE, OTHER ==
[2023-09-14 17:49] LABS: BASOPHILS % (AUTO) 0.5 %; EOSINOPHILS # (AUTO) 0.2 10^3/uL (0.0-0.7); EOSINOPHILS % (AUTO) 3.1 %; HCT - HEMATOCRIT 49.1 % (42.0-52.0); HGB - HEMOGLOBIN 16.4 g/dL (14.0-18.0); LYMPHOCYTES # (AUTO) 1.2 10^3/uL (1.5-3.5); LYMPHOCYTES % (AUTO) 18.2 %; MEAN CORPUSCULAR HGB CONC 33.4 g/dL (32.0-36.0); MEAN CORPUSCULAR VOLUME 95.9 fL (80.0-94.0); MEAN PLATELET VOLUME 10.5 fL (7.4-11.4); MONOCYTES # (AUTO) 0.7 10^3/uL (0.0-1.0); MONOCYTES % (AUTO) 10.8 %; NEUTROPHILS # (AUTO) 4.4 10^3/uL (1.5-6.6); NEUTROPHILS % (AUTO) 67.1 %; PLT - PLATELET COUNT 232 10^3/uL (130-450); RED BLOOD COUNT 5.12 10^6/uL (4.70-6.10); RED CELL DISTRIBUTION WIDTH 12.6 % (12.0-15.0); WHITE BLOOD COUNT 6.6 x10^3/uL (4.8-10.8)
[2023-09-14 18:11] LABS: ALKALINE PHOSPHATASE 74 IU/L (42-121); ALT ALANINE AMINOTRANSFERASE 14 IU/L (10-60); AST ASPARTATE AMINOTRANSFERASE 15 IU/L (10-42); BILIRUBIN,TOTAL 1.2 mg/dL (0.2-1.0); BUN - BLOOD UREA NITROGEN 16 mg/dL (6-20); CALCIUM 10.1 mg/dL (8.5-10.3); CARBON DIOXIDE - CO2 27 mmol/L (21-32); CHLORIDE 106 mmol/L (101-111); CHOL/HDL RATIO 3.7 (<5.0); CHOLESTEROL 130 mg/dL; CREATININE 0.9 mg/dL (0.6-1.3); GFR - MDRD 80 (>89); GLUCOSE 99 mg/dL (74-104); HDL CHOLESTEROL 35 mg/dL; LDL CHOLESTEROL,CALCULATED 74 mg/dL; LDL/HDL RATIO 2.1 (<3.6); POTASSIUM 4.4 mmol/L (3.5-4.5); SODIUM 137 mmol/L (135-145); TRIGLYCERIDES 104 mg/dL (48-352); VLDL CHOLESTEROL 21 mg/dL
[2023-09-14 18:23] LABS: THYROID STIMULATING HORMONE 1.56 uIU/mL (0.34-5.60)
[2023-09-14 20:30] LABS: ESTIMATED AVERAGE GLUCOSE 108 mg/dL (70-100); HEMOGLOBIN A1c% 5.4 % (4.27-6.07)
== END 2023-09-14 12:01 | disposition home or self-care (01) ==
LOC: LAB.N 12:00
PROVIDERS: ATTEND Internal Medicine
DX: I25.5 Ischemic cardiomyopathy (principal); R73.01 Impaired fasting glucose; I48.0 Paroxysmal atrial fibrillation; I25.10 Atherosclerotic heart disease of native coronary artery without angina pectoris
CPT/HCPCS: 36415; 80053; 80061; 83036; 83721; 84443; 85025